=== PATIENT | female | born 1965 | race African-American/Black ===

== ENCOUNTER 2018-01-06 14:01 | Outpatient (CLI) | payer MEDICARE, MEDICAID | END 2018-01-06 14:02 | disposition home or self-care (01) | LOC: BICMAMMO 14:01 | PROVIDERS: ATTEND Family Medicine | DX: Z12.31 Encounter for screening mammogram for malignant neoplasm of breast (principal); Z80.3 Family history of malignant neoplasm of breast | CPT/HCPCS: 77063; 77067 ==

== ENCOUNTER 2018-09-22 10:03 | Inpatient (IN) | payer MEDICARE, MEDICAID ==
--- NOTE | 2018-09-16 12:05 | HP ---
HISTORY OF PRESENT ILLNESS: Leticia Doan is a 53-year-old black female with hidradenitis suppurativa. I saw her in 2010 and 2016. In 2010, she underwent excision of the hidradenitis suppurativa, left axilla and excision of multiple foci, outside the hair-bearing area resulting in a wound that was irregular, required complex closure as well as debridement of left thigh crease and right axilla, right medial breast, and left breast and pubis. Some of these wounds were closed, others left open for healing by secondary intention. I then saw her in 2011, performing excision of hidradenitis suppurativa, right axilla, chest, sternal area, left breast, right breast, mons pubis, right groin, left groin, right thigh, left thigh, medial groin crease, left and right buttocks. In 2016, I saw extensive hidradenitis suppurativa, left upper abdomen, left groin, left buttock, and right buttock. She had wound care outpatient to help with resolution. She now presents with disease as bothersome to her involving her left groin, left thigh crease, left labia and to a lesser degree right thigh crease. She is on oral antibiotics. Plan is to excise these under general anesthesia, wounds left open for healing by secondary intention and admit her postoperatively for wound care for a short stay round of outpatient wound care. She understands risks and benefits, and consents. She is followed by Dr. Davenport. Alcohol and tobacco, none. MEDICATIONS: Metformin and Flagyl. ALLERGIES: NONE. PAST MEDICAL HISTORY: Essential hypertension, hidradenitis suppurativa, diabetes mellitus type 2, vitamin D deficiency, anxiety, and depression. PAST SURGICAL HISTORY: As noted above. SOCIAL HISTORY: The patient lives with her family. PHYSICAL EXAMINATION: VITAL SIGNS: 231 pounds, 5 foot and 4 inches. BMI 39. Blood pressure 144/76, pulse 96, temperature 98.6 degrees. HEAD, EARS, EYES, NOSE, and THROAT: Unremarkable. LUNGS: Clear to auscultation. CARDIAC: Regular rate and rhythm without murmur or gallop. ABDOMEN: Soft, nontender, and obese. EXTREMITIES: Unremarkable. Hidradenitis suppurativa. Multiple small cyst draining sinuses, right thigh crease to a lesser degree, left thigh crease more numerous. Left labia, severely inflamed and ready with multiple abscesses and draining sinuses. Left groin similar finding to a lesser degree left posterior thigh crease somewhere. ASSESSMENT AND PLAN: Hidradenitis, extensive debridement left groin crease, labia, thigh crease to a lesser degree right thigh crease. She understands risks and benefits, and consents. Job ID: [id number]
[2018-09-18 12:12] VITALS: BMI 40.8
[2018-09-22] MEDS ORDERED: Ketorolac Tromethamine 30 MG/ML VIAL ONE (10:33)
[2018-09-22 10:43] LABS: #Eosinphils 0.2 thou/uL (0.0-0.7); #Lymphocytes 1.8 thou/uL (1.20-3.40); #Monocytes 0.7 thou/uL (0.11-0.59); #Neutrophils 7.3 thou/uL (1.40-6.50); %Basophils 0.4 % (0.0-1.0); %Eosinophils 1.6 % (0.0-10.0); %Lymphocytes 17.8 % (21.0-51.0); %Neutrophils 73.3 % (42.0-75.0); Hemoglobin 11.8 g/dL (12.0-16.0); Mean Corpuscular HGB CONC 30.8 g/dL (32.0-36.0); Mean Corpuscular Hemoglobin 23.6 pg (27.0-31.0); Mean Corpuscular Volume 76.5 fL (78.0-98.0); Mean Platelet Volume 8.2 fL (7.4-10.4); Platelet Count 413 thou/uL (130-400); RBC Distribution Width 16.2 % (11.5-14.5); Red Blood Cell (RBC) Count 5.01 mill/uL (4.20-5.40)
[2018-09-22] MEDS ORDERED: Midazolam HCl 2 mg/2 ml Vial ONE (11:03)
[2018-09-22 11:06] LABS: Anion Gap 15 mmol/L (10-20); BUN (Urea Nitrogen) 19 mg/dL (9.8-20.1); Calc. Creatinine Clearance 132 mL/min (70-130); Calcium 9.6 mg/dL (7.8-10.44); Carbon Dioxide 24 mmol/L (22-29); Chloride 104 mmol/L (98-107); Estimated GFR-MDRD 85; Glucose 86 mg/dL (70-105); Potassium 4.7 mmol/L (3.5-5.1); Sodium 138 mmol/L (136-145)
[2018-09-22 11:27] LABS: Polychromasia SLIGHT = 2-3 cells (100X) (0-2/hpf)
[2018-09-22] MEDS ORDERED: Lidocaine 2% PF 5 ML VIAL ONE ×2 (12:18→12:19)
[2018-09-22] MEDS ORDERED: Bupivacaine HCl 0.5%/Epinephrine 1:200,000/PF 30 ml Vial ONE (12:18)
[2018-09-22] MEDS ORDERED: Bacitracin Zinc Ointment 30 gm TUBE ONE (12:18)
[2018-09-22] MEDS ORDERED: Fentanyl 250 MCG/5 ML VIAL ONE (12:30)
[2018-09-22] MEDS ORDERED: Bupivacaine/Epinephrine 0.25% 30 ML VIAL ONE (13:39)
[2018-09-22] MEDS ORDERED: Ondansetron ODT 4 MG TAB PO PRN (14:30)
[2018-09-22] MEDS ORDERED: Dextrose 50% Abboject 50 ML SYRINGE SLOW IVP PRN (14:30)
[2018-09-22] MEDS ORDERED: HumaLOG 300 UNITS/3 ML VIAL SC PRN (14:30)
[2018-09-22] MEDS ORDERED: hydrALAZINE 20 MG/ML VIAL SLOW IVP PRN (14:30)
[2018-09-22] MEDS ORDERED: Ondansetron PF 4 MG/2 ML Vial IVP PRN (14:30)
[2018-09-22] MEDS ORDERED: Dextrose 5% in Water 1,000 ML IV PRN (14:30)
[2018-09-22] MEDS ORDERED: Ibuprofen 600 MG TAB PO PRN ×2 (14:33→14:35)
[2018-09-22] MEDS ORDERED: traMADol HCl 50 MG TAB PO PRN ×2 (14:33→14:35)
[2018-09-22] MEDS ORDERED: Acetaminophen 500 MG TAB PO PRN (14:35)
[2018-09-22] MEDS ORDERED: Fentanyl 100 MCG/2 ML VIAL ONE ×3 (14:45→17:07)
--- NOTE | 2018-09-22 14:47 | OP ---
DATE OF PROCEDURE: 09/22/2018 PREOPERATIVE DIAGNOSIS: Hidradenitis suppurativa, left labia, groin, thigh crease, buttocks. POSTOPERATIVE DIAGNOSIS: Hidradenitis suppurativa, left labia, groin, thigh crease, buttocks. PROCEDURE PERFORMED: Excision of extensive skin and subcutaneous tissue sharply of hidradenitis suppurativa, leaving a 26 x 7 cm wound for Wound Care to cover. ANESTHESIA: General, local 0.25% Marcaine with epinephrine, 60 mL. DESCRIPTION OF PROCEDURE: The patient was taken to the operating room, where under general anesthesia in the dorsal lithotomy position in [facility], her left labia, thigh crease, thigh, vaginal area, buttocks prepared with Betadine and draped in routine fashion. She had extensive hidradenitis suppurativa involving the left labia, thigh crease, left buttock, and into the left groin. Extensive excision of infected left labia majora, groin, thigh, skin, and subcutaneous tissue excised, excising the multiple multiloculated abscesses and sinus tracts. Hemostasis gained with cautery. Wound irrigated. Local anesthetic infiltrated about the wound for postoperative pain control. Wound care team arrived to place a wound VAC. The patient tolerated the procedure well. Job ID: [id number]
[2018-09-22] MEDS ORDERED: Ondansetron PF 4 MG/2 ML Vial ONE (15:37)
[2018-09-22] MEDS ORDERED: PROPOFOL 200 MG/20 ML VIAL ONE (15:37)
[2018-09-22] MEDS ORDERED: Dexamethasone 20 MG/5 ML VIAL ONE (15:37)
[2018-09-22] MEDS ORDERED: Lidocaine 1% PF 5 ML VIAL ONE (15:37)
[2018-09-22] MEDS: Famotidine 20 MG TAB PO SCH (20:45)
[2018-09-22] MEDS: metFORMIN 500 MG TAB PO SCH (20:46)
[2018-09-22] MEDS ORDERED: Enoxaparin Sodium 40 MG/0.4 ML SYRINGE SC SCH (21:00)
[2018-09-22] MEDS ORDERED: cloNIDine 0.1 MG TAB PO SCH (21:00)
[2018-09-22] MEDS ORDERED: risperiDONE 3 MG TAB PO SCH (21:00)
[2018-09-23 08:27] LABS: #Lymphocytes 1.4 thou/uL (1.20-3.40); #Neutrophils 10.4 thou/uL (1.40-6.50); %Basophils 0.1 % (0.0-1.0); %Eosinophils 0.2 % (0.0-10.0); %Lymphocytes 10.9 % (21.0-51.0); %Monocytes 7.7 % (0.0-10.0); %Neutrophils 81.1 % (42.0-75.0); Hemoglobin 10.4 g/dL (12.0-16.0); Mean Corpuscular HGB CONC 30.9 g/dL (32.0-36.0); Mean Corpuscular Hemoglobin 23.9 pg (27.0-31.0); Mean Corpuscular Volume 77.3 fL (78.0-98.0); Platelet Count 366 thou/uL (130-400); RBC Distribution Width 16.1 % (11.5-14.5); Red Blood Cell (RBC) Count 4.35 mill/uL (4.20-5.40); White Blood Cell (WBC) Count 12.9 thou/uL (4.8-10.8)
[2018-09-23] MEDS: metFORMIN 500 MG TAB PO SCH (08:28)
[2018-09-23] MEDS: Famotidine 20 MG TAB PO SCH (08:29)
[2018-09-23 08:44] LABS: Anion Gap 11 mmol/L (10-20); BUN (Urea Nitrogen) 22 mg/dL (9.8-20.1); Calc. Creatinine Clearance 135 mL/min (70-130); Calcium 9.2 mg/dL (7.8-10.44); Carbon Dioxide 25 mmol/L (22-29); Chloride 107 mmol/L (98-107); Estimated GFR-MDRD 87; Glucose 89 mg/dL (70-105); Potassium 4.7 mmol/L (3.5-5.1); Sodium 138 mmol/L (136-145)
[2018-09-23] MEDS ORDERED: Benztropine 1 MG TAB PO SCH (09:00)
[2018-09-23 16:07] VITALS: BP 103/56; TEMP 97.7
--- NOTE | 2018-09-23 17:10 | EKG ---
Test Reason : PREOP Blood Pressure : / mmHG Vent. Rate : 097 BPM Atrial Rate : 097 BPM P-R Int : 138 ms QRS Dur : 084 ms QT Int : 350 ms P-R-T Axes : 041 -37 036 degrees QTc Int : 444 ms Normal sinus rhythm Left axis deviation Minimal voltage criteria for LVH, may be normal variant Abnormal ECG Confirmed by TERESA MENESES ([id number]) on 09/23/2018 5:10:52 PM Referred By: GENNARO Confirmed By:TERESA MENESES
--- NOTE | 2018-09-24 05:02 | DIS ---
DATE OF ADMISSION: 09/22/2018 DATE OF DISCHARGE: 09/23/2018 DISCHARGE DIAGNOSES: 1. Hidradenitis suppurativa involving the left labia majora, left groin, left mons, left buttock. 2. Hypertension. 3. Diabetes mellitus type 2. 4. Anxiety. 5. Depression. 6. Obesity. PROCEDURES: Sharp surgical excision of skin and subcutaneous tissue, left labia, groin, thigh crease, mons, left buttock. Wound left open for healing by secondary intention. Wound VAC applied. DISCHARGE PLAN: [facility], to change wound VAC 3 times a week. Follow up in my office in 2 to 3 weeks to review the wound. No antibiotics necessary for discharge. DISCHARGE MEDICATIONS: Resume her home medications; 1. Benztropine mesylate. 2. Ibuprofen p.r.n. 3. Metformin b.i.d. 4. Clonidine at bedtime. 5. Sertraline . 6. Tramadol p.r.n. 7. Risperidone at bedtime. HISTORY: A 53-year-old female, 40 BMI, hidradenitis suppurativa, right labia, groin, buttocks area, now presents with the same on the left side. She is admitted, underwent the above procedure and postop, she has done well. Home Health has been arranged, [facility] which she has used before and pleased with and they will assume wound VAC care. She will follow up in my office in 2 to 3 weeks. Job ID: [id number]
== END 2018-09-23 18:35 | disposition home or self-care (01) | DRG 571 ==
LOC: SDC 10:03 → SURG A 14:30
PROVIDERS: ADMIT Specialist; ATTEND Specialist
PROC: 0JB90ZZ Excision of Buttock Subcutaneous Tissue and Fascia, Open Approach (ICD-10-PCS; principal; 2018-09-22)
PROC: 0JBM0ZZ Excision of Left Upper Leg Subcutaneous Tissue and Fascia, Open Approach (ICD-10-PCS; 2018-09-22)
PROC: 0UBM0ZZ Excision of Vulva, Open Approach (ICD-10-PCS; 2018-09-22)
DX: L73.2 Hidradenitis suppurativa (principal); Z68.41 Body mass index [BMI] 40.0-44.9, adult; I10 Essential (primary) hypertension; E11.9 Type 2 diabetes mellitus without complications; E55.9 Vitamin D deficiency, unspecified; F41.9 Anxiety disorder, unspecified; F32.9 Major depressive disorder, single episode, unspecified; E66.9 Obesity, unspecified
CPT/HCPCS: 36415; 36416; 80048; 85025; 88305; 88312; 93005; 93010; J0131; J0670; J0690; J1100; J1650; J1885; J2001; J2250; J2405; J2704; J3010

== ENCOUNTER 2019-01-12 07:53 | Outpatient (CLI) | payer MEDICARE, MEDICAID ==
--- NOTE | 2019-01-12 08:55 | MMO ---
Bilateral MAMMO Bilat Screen [facility]. CLINICAL HISTORY: Patient is 53 years old and is seen for screening. The patient has the following family history of breast cancer: maternal grandmother. The patient has no personal history of cancer. VIEWS: The views performed were: bilateral craniocaudal with tomosynthesis and bilateral mediolateral oblique with tomosynthesis. FILMS COMPARED: The present examination has been compared to a prior imaging study performed at [facility] on 01/06/2018. This study has been interpreted with the assistance of computer-aided detection. MAMMOGRAM FINDINGS: There are scattered fibroglandular densities. There are no suspicious masses, suspicious calcifications, or new areas of architectural distortion. IMPRESSION: THERE IS NO MAMMOGRAPHIC EVIDENCE OF MALIGNANCY. A ROUTINE FOLLOW-UP MAMMOGRAM IN 1 YEAR IS RECOMMENDED. THE RESULTS OF THIS EXAM WERE SENT TO THE PATIENT. ACR BI-RADS Category 1 - Negative MAMMOGRAPHY NOTE: 1. A negative mammogram report should not delay a biopsy if a dominant of clinically suspicious mass is present. 2. Approximately 10% to 15% of breast cancers are not detected by mammography. 3. Adenosis and dense breasts may obscure an underlying neoplasm. Reported by: COLTEN LARSON MD Electonically Signed: [id number]
== END 2019-01-12 07:54 | disposition home or self-care (01) ==
LOC: BICMAMMO 07:53
PROVIDERS: ATTEND Family Medicine
DX: Z12.31 Encounter for screening mammogram for malignant neoplasm of breast (principal); Z80.3 Family history of malignant neoplasm of breast
CPT/HCPCS: 77063; 77067

== ENCOUNTER 2020-01-14 08:47 | Outpatient (CLI) | payer MEDICARE, MEDICAID ==
--- NOTE | 2020-01-14 09:33 | MMO ---
Bilateral MAMMO Bilat Screen [facility]. CLINICAL HISTORY: Patient is 54 years old and is seen for screening. The patient has the following family history of breast cancer: maternal grandmother. The patient has no personal history of cancer. VIEWS: The views performed were: bilateral craniocaudal with tomosynthesis and bilateral mediolateral oblique with tomosynthesis. FILMS COMPARED: The present examination has been compared to prior imaging studies performed at [facility] on 01/06/2018 and 01/12/2019. This study has been interpreted with the assistance of computer-aided detection. MAMMOGRAM FINDINGS: There are scattered fibroglandular densities. There are stable benign appearing calcifications seen in both breasts. There are no suspicious masses, suspicious calcifications, or new areas of architectural distortion. IMPRESSION: THERE IS NO MAMMOGRAPHIC EVIDENCE OF MALIGNANCY. A ROUTINE FOLLOW-UP MAMMOGRAM IN 1 YEAR IS RECOMMENDED. THE RESULTS OF THIS EXAM WERE SENT TO THE PATIENT. ACR BI-RADS Category 2 - Benign finding MAMMOGRAPHY NOTE: 1. A negative mammogram report should not delay a biopsy if a dominant of clinically suspicious mass is present. 2. Approximately 10% to 15% of breast cancers are not detected by mammography. 3. Adenosis and dense breasts may obscure an underlying neoplasm. Reported by: PRASHANT JAMISON MD Electonically Signed: [id number]
== END 2020-01-14 08:48 | disposition home or self-care (01) ==
LOC: BICMAMMO 08:47
PROVIDERS: ATTEND Family Medicine
DX: Z12.31 Encounter for screening mammogram for malignant neoplasm of breast (principal); Z80.3 Family history of malignant neoplasm of breast
CPT/HCPCS: 77063; 77067

== ENCOUNTER 2020-08-31 14:58 | Outpatient (CLI) | payer MEDICARE, MEDICAID | END 2020-08-31 14:59 | disposition home or self-care (01) | LOC: BICRAD 14:58 | PROVIDERS: ATTEND Family Medicine | DX: M54.5 Low back pain (principal); M53.86 Other specified dorsopathies, lumbar region | CPT/HCPCS: 72100 ==

== ENCOUNTER 2021-01-15 09:29 | Outpatient (CLI) | payer MEDICARE, MEDICAID | END 2021-01-15 09:30 | disposition home or self-care (01) | LOC: BICMAMMO 09:29 | PROVIDERS: ATTEND Family Medicine | DX: Z12.31 Encounter for screening mammogram for malignant neoplasm of breast (principal); Z80.3 Family history of malignant neoplasm of breast | CPT/HCPCS: 77063; 77067 ==

== ENCOUNTER 2022-07-08 10:18 | Outpatient (CLI) | payer OTHER, MEDICAID | END 2022-07-08 10:19 | disposition home or self-care (01) | LOC: BICRAD 10:18 | PROVIDERS: ATTEND Family Medicine | DX: E11.22 Type 2 diabetes mellitus with diabetic chronic kidney disease (principal); M54.30 Sciatica, unspecified side; M54.9 Dorsalgia, unspecified; M47.816 Spondylosis without myelopathy or radiculopathy, lumbar region | CPT/HCPCS: 72100; 72170; 74018 ==